=== PATIENT | female | born 1995 | race African-American/Black ===

== ENCOUNTER 2017-12-02 12:28 | Emergency (ER) | payer MEDICAID, OTHER ==
[~2017-12-02] VITALS: Ht 172.7 cm; Wt 56.7 kg
[2017-12-02 13:37] LABS: Basophils # (auto) 0.1 uL; Basophils % (auto) 0.5 % (0.0-2.0); Eosinophils # (auto) 0.1 uL; Eosinophils % (auto) 1.1 % (0.0-7.0); Hematocrit 38.1 % (36.0-46.0); Lymphocytes # (auto) 2.5 uL; Lymphocytes % (auto) 22.7 % (10.0-50.0); Mean Corpuscular Hemoglobin 29.5 pg (28.0-32.0); Mean Corpuscular Volume 86.8 fL (80.0-100.0); Monocytes # (auto) 0.6 uL; Monocytes % (auto) 5.8 % (0.0-12.0); Neutrophils # (auto) 7.6 uL; Neutrophils % (auto) 69.9 % (37.0-80.0); Platelet Count (auto) 216 10^3/uL (140-450); Red Blood Cells 4.39 10^6/uL (4.0-5.20); Red Cell Distribution Width 13.6 % (11.8-14.3); White Blood Cell 10.8 10^3/uL (4.4-10.8)
[2017-12-02 13:58] LABS: Albumin 3.5 g/dL (3.4-5.0); BUN/Creatinine Ratio 10.4; Bilirubin, Total 0.3 mg/dL (0.2-1.0); Potassium 3.7 mmol/L (3.5-5.1); Total Protein 7.9 g/dL (6.4-8.2)
[2017-12-02 14:03] LABS: Urine Bacteria NONE SEEN /hpf (None Seen); Urine Blood Negative /uL (Negative); Urine Mucus FEW (None Seen); Urine Specific Gravity 1.019 (1.001-1.035); Urine WBC 1 /hpf (0 - 5)
[2017-12-02 16:12] VITALS: BP 138/72
== END 2017-12-02 16:14 | disposition home or self-care (01) ==
LOC: EDBD 12:28 → ER 12:28
DX: O26.891 Other specified pregnancy related conditions, first trimester (principal); E16.2 Hypoglycemia, unspecified; Z3A.15 15 weeks gestation of pregnancy
CPT/HCPCS: 36415; 76805; 80053; 81001; 82962; 84702; 85025; 93005

== ENCOUNTER 2019-04-04 17:35 | Emergency (ER) | payer MEDICAID ==
[~2019-04-04] VITALS: Ht 172.7 cm; Wt 62.6 kg
[2019-04-04 17:40] VITALS: BP 134/78
[2019-04-04] MEDS ORDERED: ACETAMINOPHEN/CODEINE#3 (300/30mg) TAB PO ONE (19:15)
[2019-04-04] MEDS ORDERED: BACLOFEN 10 MG TAB PO ONE (19:15)
== END 2019-04-04 20:31 | disposition home or self-care (01) ==
LOC: ER 17:35 → EDBD 17:35 → ER 20:31
DX: S00.531A Contusion of lip, initial encounter (principal); M62.838 Other muscle spasm; R51 Headache; R04.0 Epistaxis; V47.5XXA Car driver injured in collision with fixed or stationary object in traffic accident, initial encounter; Y93.I9 Activity, other involving external motion; Y92.488 Other paved roadways as the place of occurrence of the external cause; Y99.8 Other external cause status
CPT/HCPCS: 70160; 81025